=== PATIENT | female | born 1935 | race Caucasian/White ===

== ENCOUNTER 2019-04-08 10:33 | Observation (INO) | payer OTHER ==
[2019-04-08 11:19] LABS: ADD MAN DIFF? NO
[2019-04-08 11:25] LABS: BASOPHILS % 0.2 % (0.0-2.0); EOSINOPHILS % 0.5 % (0.0-7.0); HEMATOCRIT 37.7 % (37.0-47.0); HEMOGLOBIN 12.3 g/dl (12.0-16.0); LYMPHOCYTES # 2.1 10^3/ul (0.8-2.9); LYMPHOCYTES % 35.8 % (15.0-51.0); MEAN CORPUSCULAR HEMOGLOBIN 30.9 pg (29.0-33.0); MEAN CORPUSCULAR HGB CONC 32.6 g/dl (32.0-37.0); MEAN CORPUSCULAR VOLUME 94.7 fl (82.0-101.0); MEAN PLATELET VOLUME 12.5 fl (7.4-10.4); MONOCYTE # 0.5 10^3/ul (0.3-0.9); MONOCYTES % 8.2 % (0.0-11.0); NEUTROPHIL # 3.2 10^3/ul (1.6-7.5); NEUTROPHILS % 55.1 % (39.0-77.0); PLATELET COUNT 115 10^3/UL (140-415); RED BLOOD COUNT 3.98 10^6/ul (4.20-5.40)
[2019-04-08 11:25] LABS: WHITE BLOOD COUNT 5.7 10^3/ul (4.8-10.8)
[2019-04-08 11:44] LABS: INR 0.97; PARTIAL THROMBOPLASTIN TIME 26.9 Sec (23.0-35.0)
[2019-04-08 11:45] LABS: ANION GAP 7 (5-13); BLOOD UREA NITROGEN 22 mg/dl (7-20); CALCIUM 9.6 mg/dl (8.4-10.2); CARBON DIOXIDE 27 mmol/L (21-31); CHLORIDE 108 mmol/L (97-110); CREATININE 0.95 mg/dl (0.44-1.00); GLUCOSE 151 mg/dl (70-220); MAGNESIUM 2.1 mg/dl (1.7-2.5); POTASSIUM 4.3 mmol/L (3.5-5.1); SODIUM 142 mmol/L (135-144)
[2019-04-08 11:57] LABS: TROPONIN-I < 0.012 ng/ml (0.000-0.120)
[2019-04-08 12:03] LABS: FREE THYROXINE INDEX (Calc) 3.07 ug/ml (0.65-3.89); T3 UPTAKE 29.5 % (23.5-40.5); T4 (THYROXINE) 10.4 ug/dl (5.5-11.0)
[2019-04-08] MEDS ORDERED: ACETAMINOPHEN 325 MG TAB PO ×2 (13:30→15:00)
[2019-04-08] MEDS ORDERED: ONDANSETRON 4 MG INJ IV ×2 (13:30→15:00)
[2019-04-08] MEDS ORDERED: METOPROLOL 5 MG INJ IV (14:30)
[2019-04-08] MEDS ORDERED: DOCUSATE SODIUM 100 MG CAP PO (15:00)
[2019-04-08] MEDS ORDERED: NACL 0.9% 3 ML SYG IV (15:00)
[2019-04-08] MEDS ORDERED: GLUCOSE GEL 15 GRAM TUBE PO ×2 (15:30)
[2019-04-08] MEDS ORDERED: GLUCAGON 1 MG INJ IM (15:30)
[2019-04-08] MEDS ORDERED: GLUCOSE GEL 15 GRAM TUBE BUCCAL (15:30)
[2019-04-08] MEDS ORDERED: DEXTROSE 50% 50 ML SYRINGE IV ×2 (15:30)
[2019-04-08 17:26] LABS: CREATINE KINASE 102 IU/L (23-200)
[2019-04-08 17:39] LABS: CK INDEX 0.5; CK-MB 0.48 ng/ml (0.0-2.4); TROPONIN-I < 0.012 ng/ml (0.000-0.120)
[2019-04-08] MEDS: INSULIN ASPART [NOVOLOG] 3 ML PEN SC ×2 (18:54→21:30)
[2019-04-08] MEDS: ATORVASTATIN 10 MG TAB PO (20:52)
[2019-04-08] MEDS: METOPROLOL 25 MG TAB PO (20:54)
[2019-04-08 23:33] LABS: CREATINE KINASE 115 IU/L (23-200)
[2019-04-08 23:46] LABS: CK INDEX 0.6; CK-MB 0.66 ng/ml (0.0-2.4); TROPONIN-I < 0.012 ng/ml (0.000-0.120)
[2019-04-09] MEDS: ACCU-CHEK XX (01:18)
[2019-04-09] MEDS: PANTOPRAZOLE (EC) 40 MG TAB PO (05:19)
[2019-04-09 07:14] LABS: CHOLESTEROL 116 mg/dl (100-200)
[2019-04-09 07:14] LABS: CHOL/HDL RATIO 2.2 RATIO; HDL CHOLESTEROL 51 mg/dl (33-92); LDL CHOLESTEROL,CALCULATED 51 mg/dl; TRIGLYCERIDES 71 mg/dl (0-149)
[2019-04-09 07:20] LABS: ANION GAP 8 (5-13); BLOOD UREA NITROGEN 22 mg/dl (7-20); CALCIUM 9.2 mg/dl (8.4-10.2); CARBON DIOXIDE 26 mmol/L (21-31); CHLORIDE 108 mmol/L (97-110); CREATININE 0.82 mg/dl (0.44-1.00); GLUCOSE 120 mg/dl (70-220); POTASSIUM 4.3 mmol/L (3.5-5.1); SODIUM 142 mmol/L (135-144)
[2019-04-09] MEDS: INSULIN ASPART [NOVOLOG] 3 ML PEN SC ×2 (07:55→11:34)
[2019-04-09] MEDS: ASPIRIN 325 MG TAB PO (09:24)
[2019-04-09] MEDS: AMLODIPINE 5 MG TAB PO (09:25)
[2019-04-09] MEDS: METOPROLOL 25 MG TAB PO (09:25)
[2019-04-09] MEDS: LOSARTAN 25 MG TAB PO (11:31)
== END 2019-04-09 16:18 | disposition home or self-care (01) ==
LOC: E/R 10:33 → TEL 13:10
DX: R00.2 Palpitations (principal); I10 Essential (primary) hypertension; E11.9 Type 2 diabetes mellitus without complications; M81.0 Age-related osteoporosis without current pathological fracture; E78.5 Hyperlipidemia, unspecified; Z79.84 Long term (current) use of oral hypoglycemic drugs
CPT/HCPCS: 36415; 71045; 80048; 80061; 82550; 82553; 82962; 83735; 84436; 84443; 84479; 84484; 85025; 85610; 85730; 93005; 93306; 93971; 99285-25; G0378